=== PATIENT | female | born 1950 | race Caucasian/White ===

== ENCOUNTER → 2018-05-21 | Outpatient (CLI) | payer MEDICARE, OTHER | END | disposition home or self-care (01) | LOC: PLD 08:20 → LAB SHORT 08:20 | DX: L57.0 Actinic keratosis (principal) | CPT/HCPCS: 88305 ==

== ENCOUNTER → 2022-02-19 | Outpatient (CLI) | payer MEDICARE, OTHER | END | disposition home or self-care (01) | LOC: PLD 09:55 → LAB SHORT 09:55 | DX: D48.5 Neoplasm of uncertain behavior of skin (principal) | CPT/HCPCS: 88305 ==

== ENCOUNTER 2022-12-04 17:26 | Emergency (ER) | payer MEDICARE, OTHER ==
[~2022-12-04] VITALS: Ht 162.6 cm; Wt 63.5 kg
[2022-12-04 18:12] LABS: BASOPHILS ABSOLUTE AUTO 0.03 K/mm3 (0.00-0.23); BASOPHILS PERCENT AUTO 0 % (0-2); EOSINOPHILS PERCENT AUTO 0 % (0-6); Hematocrit 42.2 % (33.0-51.0); Hemoglobin 15.2 g/dL (11.5-16.0); IMMATURE GRAN ABSOLUTE AUTO 0.09 K/mm3 (0.00-0.10); IMMATURE GRAN PERCENT AUTO 1 % (0-1); LYMPHOCYTES ABSOLUTE AUTO 0.87 K/mm3 (0.84-5.20); LYMPHOCYTES PERCENT AUTO 5 % (21-46); MONOCYTES ABSOLUTE AUTO 0.96 K/mm3 (0.16-1.47); MONOCYTES PERCENT AUTO 5 % (4-13); Mean Corpuscular HGB 31.1 pg (26.0-34.0); Mean Corpuscular Volume 87 fL (80-100); Mean Platelet Volume 10.1 fL (9.1-12.4); NEUTROPHILS PERCENT AUTO 89 % (41-73); Platelet Count 238 K/mm3 (150-400); RDW Coefficient Variation 11.9 % (11.7-14.2); RDW Standard Deviation 37.4 fL (35.1-46.3); Red Blood Cell Count 4.88 M/mm3 (3.80-5.20); White Blood Cell Count 18.15 K/mm3 (4.00-11.30)
[2022-12-04 18:26] LABS: Albumin, Blood 4.2 g/dL (3.4-5.0); Albumin/Globulin Ratio 1.2 (0.8-1.8); Bilirubin, Total 0.9 mg/dL (0.1-1.0); Bun/Creatinine Ratio 13.5 (12.0-20.0); Calcium, Blood 9.6 mg/dL (8.5-10.1); Creatinine, Blood 0.89 mg/dL (0.40-1.00); Globulin, Blood 3.4 g/dL (2.2-4.0); Total Protein, Blood 7.6 g/dL (6.4-8.2)
[2022-12-04 22:48] LABS: Source, Urine Clean Catch
[2022-12-04 23:07] LABS: Appearance, Urine Clear (Clear); Bilirubin, Urine Neg (Neg); Blood, Urine 4+ (Neg); Color, Urine Yellow (P-Yellow); Glucose Qualitative, Urine Neg (Neg); Ketones, Urine 2+ (Neg); Leukocyte Esterase, Urine 1+ (Neg); Nitrite, Urine Neg (Neg); Protein, Urine 2+ (Neg); Urobilinogen, Urine NORM (Normal)
[2022-12-04 23:21] LABS: Red Blood Cells, Urine 0-2 /hpf (0-2); White Blood Cells, Urine 0-2 /hpf (0-5)
[2022-12-04 23:22] LABS: Bacteria Mod /hpf; Calcium Oxalate Crystals Few /hpf; Squamous Epithelial Cells Mod /hpf (Few)
[2022-12-05 01:07] LABS: Hematocrit 39.3 % (33.0-51.0)
[2022-12-05 01:15] VITALS: BP 142/73
== END 2022-12-05 01:58 | disposition home or self-care (01) ==
LOC: ER 17:26
PROVIDERS: Emergency Medicine; Physician Assistant
DX: K92.1 Melena (principal); E86.0 Dehydration; R10.13 Epigastric pain
CPT/HCPCS: 80053; 81001; 83690; 85014; 85018; 85025; 96361; 96374; 96375; 99284-25; J1885; J2405; J7030

== ENCOUNTER → 2024-02-14 | Outpatient (CLI) | payer MEDICARE | LOC: LAB SHORT 15:58 → LAB 15:58 | DX: L01.00 Impetigo, unspecified (principal) | CPT/HCPCS: 87070 ==

== ENCOUNTER 2025-01-11 07:48 | Day surgery (SDC) | payer MEDICARE | END 2025-01-11 23:21 | disposition home or self-care (01) | LOC: CT 07:48 | DX: I25.10 Atherosclerotic heart disease of native coronary artery without angina pectoris (principal); R07.9 Chest pain, unspecified; I25.84 Coronary atherosclerosis due to calcified coronary lesion | CPT/HCPCS: 75574; Q9967 ==

== ENCOUNTER 2025-01-20 05:59 | Day surgery (SDC) | payer MEDICARE ==
[~2025-01-20] VITALS: Ht 154.9 cm; Wt 70.0 kg
[2025-01-20] VITALS (8 sets, daily range): BP systolic 103–171; BP diastolic 65–95
[2025-01-20] MEDS ORDERED: Verapamil HCL 2.5 MG/ML 2ML Injection ONE (06:41)
[2025-01-20] MEDS ORDERED: NS 1,000 ML IV ONE ×2 (06:42→07:02)
[2025-01-20] MEDS ORDERED: Heparin Sodium 1000 Units/ML 10ML MDV ONE (06:42)
[2025-01-20] MEDS ORDERED: NS 250 ML IV ONE (06:42)
[2025-01-20] MEDS ORDERED: Nitroglycerin 2 MG/20 ML BTL ONE (06:42)
[2025-01-20] MEDS ORDERED: ALPR.5 PO (06:43)
[2025-01-20] MEDS ORDERED: ASPI81CH PO (06:44)
[2025-01-20] MEDS ORDERED: ATOM40 PO (06:45)
[2025-01-20] MEDS ORDERED: CARV3.125 PO (06:47)
[2025-01-20] MEDS ORDERED: Estrace Vagin42.5 GM PV (06:48)
[2025-01-20] MEDS ORDERED: MAGNESIUM OXID500 MG PO (06:49)
[2025-01-20] MEDS ORDERED: LEVSOD75 PO (06:49)
[2025-01-20] MEDS ORDERED: VALA500 PO (06:50)
[2025-01-20] MEDS ORDERED: FentaNYL Citrate 50 MCG/ML 2 ML Injection ONE (07:02)
[2025-01-20] MEDS ORDERED: Midazolam HCl 1MG / ML 2ML Vial ONE (07:02)
--- NOTE | 2025-01-20 07:52 | NUR ---
PT BACK TO RECOVERY FROM LAB IN [facility]. PT A&O. RADIAL SITE SOFT AND NON-TENDER PER PT. NO BLEEDING/HEMATOMA NOTED.
--- NOTE | 2025-01-20 08:04 | NUR ---
DR JOVEL AT BEDSIDE TO DISCUSS PROCEDURAL FINDINGS AND FUTURE PLAN OF CARE.
--- NOTE | 2025-01-20 08:52 | NUR ---
RADIAL SITE SOFT AND NON-TENDER PER PT. NO BLEEDING/HEMATOMA NOTED. 2CC REMOVED FROM TR BAND.
--- NOTE | 2025-01-20 09:06 | NUR ---
2cc removed from tr band. radial site soft and non-tender per pt. no bleeding/hematoma noted.
--- NOTE | 2025-01-20 09:12 | NUR ---
tr band fully deflated. no bleeding/hematoma noted. radial site soft and non-tender per pt.
--- NOTE | 2025-01-20 10:18 | NUR ---
pt given dc instructions and verbalized understanding. iv out. pt changed. radial site soft and non-tender per pt. no bleeding/hematoma noted. cloth dot, arm board, and sling applied. pt refused wc. pt ambulated to [facility] w/ family w/o assistance.
== END 2025-01-20 10:15 | disposition home or self-care (01) ==
LOC: MHTC 05:59
DX: I25.10 Atherosclerotic heart disease of native coronary artery without angina pectoris (principal); E78.00 Pure hypercholesterolemia, unspecified; E03.9 Hypothyroidism, unspecified; I10 Essential (primary) hypertension; K21.9 Gastro-esophageal reflux disease without esophagitis; E66.9 Obesity, unspecified; Z68.29 Body mass index [BMI] 29.0-29.9, adult; Z79.82 Long term (current) use of aspirin; Z79.890 Hormone replacement therapy; Z79.899 Other long term (current) drug therapy; Z90.710 Acquired absence of both cervix and uterus
CPT/HCPCS: 76937; 93454; 99152; 99153; A9270; C1769; C1887; C1894; J1644; J2250; J3010; J7030; J7050; Q9967